=== PATIENT | female | born 1955 | race Caucasian/White ===

== ENCOUNTER 2020-02-14 09:00 | Outpatient (CLI) | payer OTHER, SELFPAY ==
--- NOTE | ~2020-02-14 | US_ITS ---
EXAMINATION: US carotid duplex BI DATE: 02/14/2020 09:27 INDICATION: Bilateral carotid stenosis TECHNIQUE: Grayscale, color Doppler, and pulsed Doppler images of the cervical carotid arteries were obtained. The degree of vessel stenosis is placed in one of the following categories: normal, <50%, 5 0-69%, >=70% but less than near-occlusion, near-occlusion, or total occlusion. Note that percent sten osis relative to normal distal artery lumen diameter is indirectly measured from velocity measurement s as described by Sid, et al. Radiology 2003; 229:340-346. COMPARISON: None. FINDINGS: RIGHT: The right common carotid artery (CCA) peak systolic velocity (PSV) is 87 cm/s. The right internal car otid artery (ICA) PSV is 134 cm/s. The right ICA end-diastolic velocity (EDV) is 41 cm/s. The right I CA/CCA PSV ratio is 1.5. Grayscale and color Doppler images yield an estimate of 50-69% diameter redu ction from plaque in the ICA. The external carotid artery (ECA) PSV is 87 cm/s. There is antegrade fl ow in the right vertebral artery. LEFT: The left CCA PSV is 106 cm/s. The left ICA PSV is 139 cm/s. The left ICA EDV is 46 cm/s. The left ICA /CCA PSV ratio is 1.3. Grayscale and color Doppler images yield an estimate of 50-69% diameter reduct ion from plaque in the ICA. The ECA PSV is 114 cm/s. There is antegrade flow in the left vertebral ar mercedes. IMPRESSION: 1. 50-69% stenosis in the right internal carotid artery. 2. 50-69% stenosis in the left internal carotid artery. Reviewed, dictated and finalized at location B.
== END 2020-02-14 09:01 | disposition home or self-care (01) ==
LOC: CHSIMG 09:01
PROVIDERS: PCP Internal Medicine; Visit Provider Internal Medicine
DX: I65.23 Occlusion and stenosis of bilateral carotid arteries (principal)
CPT/HCPCS: 93880

== ENCOUNTER 2020-06-19 12:19 | Outpatient (CLI) | payer MEDICARE, SELFPAY | END 2020-06-19 12:20 | disposition home or self-care (01) | LOC: CHSIMG 12:21 | PROVIDERS: PCP Internal Medicine; Visit Provider Internal Medicine Cardiovascular Disease | DX: R93.89 Abnormal findings on diagnostic imaging of other specified body structures (principal); I51.9 Heart disease, unspecified | CPT/HCPCS: 93306 ==

== ENCOUNTER 2021-05-24 12:32 | Outpatient (CLI) | payer MEDICARE, SELFPAY ==
--- NOTE | ~2021-05-24 | US_ITS ---
EXAMINATION: US carotid duplex BI DATE: 05/24/2021 13:02 INDICATION: Carotid stenosis TECHNIQUE: Grayscale, color Doppler, and pulsed Doppler images of the cervical carotid arteries were obtained. The degree of vessel stenosis is placed in one of the following categories: normal, <50%, 5 0-69%, >=70% but less than near-occlusion, near-occlusion, or total occlusion. Note that percent sten osis relative to normal distal artery lumen diameter is indirectly measured from velocity measurement s as described by Sid, et al. Radiology 2003; 229:340-346. Notes: Normal: Peak systolic velocity <125 centimeters/sec and no plaque <50%. Peak systolic velocity <125 ( EDV <40; ICA/CCA PSV ratio <2.0; used these factors only a tandem lesions or low cardiac output or co ntralateral disease) 50-69 %: PSV 125-230 (EDV 40-100; ratio 2-4) >= 70% but less than near occlusion: PSV greater than 230 (EDV > 100; ratio> 4.0) Near Occlusion: PSV that is variable; markedly narrowed lumen Occlusion: Absent flow on color/spectral Doppler and no lumen on sanchez scale. COMPARISON: 02/14/2020. FINDINGS: RIGHT: The right common carotid artery (CCA) peak systolic velocity (PSV) is 77 cm/s. The right internal car otid artery (ICA) PSV is 94 cm/s. The right ICA end-diastolic velocity (EDV) is 33 cm/s. The right IC A/CCA PSV ratio is 1.2. The external carotid artery (ECA) PSV is 81 cm/s. There is antegrade flow in the right vertebral artery. LEFT: The left CCA PSV is 82 cm/s. The left ICA PSV is 142 cm/s. The left ICA EDV is 53 cm/s. The left ICA/ CCA PSV ratio is 1.7. The ECA PSV is 81 cm/s. There is antegrade flow in the left vertebral artery. IMPRESSION: 1. Less than 50% stenosis in the right internal carotid artery by sonographic criteria. 2. 50-69% stenosis in the left internal carotid artery by sonographic criteria. Reviewed, dictated and finalized at location B. L FABRICATOR WELDER IMPRESSION: 1. Less than 50% stenosis in the right internal carotid artery by sonographic c riteria. 2. 50-69% stenosis in the left internal carotid artery by sonographic criteria.
== END 2021-05-24 12:33 | disposition home or self-care (01) ==
LOC: CHSIMG 12:34
PROVIDERS: PCP Internal Medicine; Visit Provider Internal Medicine Cardiovascular Disease
DX: I65.23 Occlusion and stenosis of bilateral carotid arteries (principal)
CPT/HCPCS: 93880

== ENCOUNTER 2021-05-26 09:57 | Outpatient (CLI) | payer MEDICARE, SELFPAY ==
--- NOTE | ~2021-05-26 | DEXA_ITS ---
Bone Density Report Name: ROSE MARY PFEIFFER Age: 66 Sex: Female Ethnicity: White Date of : 1955 Indication: postmenopausal; screening for osteoporosis; height loss; hysterectomy; Referring Provider: UNKNOWN, UNKNOWN Study: Bone densitometry was performed. Exam Date: May 26, 2021 Accession number: [id number] Bone Density: Region BMD T-score Z-score Classification AP Spine(L1-L4) 0.794 -2.3 -0.5 Osteopenia Femoral Neck (Left) 0.638 -1.9 -0.3 Osteopenia Total Hip (Left) 0.866 -0.6 0.7 Normal Femoral Neck (Right) 0.749 -0.9 0.7 Normal Total Hip (Right) 0.843 -0.8 0.5 Normal Femoral Neck Mean 0.694 -1.4 0.2 Osteopenia Total Hip Mean 0.855 -0.7 0.6 Normal World Health Organization criteria for BMD impression classify patients as: Normal (T-score at or above -1.0), Osteopenia (T-score between -1.0 and -2.5), or Osteoporosis (T-score at or below -2.5). 10-year Fracture Risk(1): Major Osteoporotic Fracture 9.9% Hip Fracture 1.4% Reported Risk Factors: [place] (), Neck BMD=0.638, BMI=29.9 (1) FRAX(R) Version 3.08. Fracture probability calculated for an untreated patient. Fracture probability may be lower if the patient has received treatment. Clinical Information Provided by Patient: Has used the following medications: Vitamin D, Calcium Has the following medical conditions: Hysterectomy Patient maximum height was 65 Menopause Age: 53 No regular weight bearing exercise Drinks caffeinated beverages Onset of menses at age 16 Number of children 3 Impression: The patient has low bone mass, based on the Total Spine T-score. Discussion: BONE DENSITY IS LOW AT ONE OR MORE SKELETAL SITES. This patient's lowest T-score is low at one or more skeletal sites. It meets the World Health Organization's (WHO) criteria for ?low bone mass? (T-score between -1.0 and -2.5). The patient's 10-year risk of fracture as calculated by FRAX is less than the threshold where pharmacological therapy is recommended by the National Osteoporosis Foundation (NOF). However, all treatment decisions require clinical judgment and consideration of individual patient factors, including patient preferences, comorbidities, previous drug use, risk factors not captured in the FRAX model (e.g., frailty, falls, vitamin D deficiency, increased bone turnover, interval significant decline in bone density) and possible under or overestimation of fracture risk by FRAX. The patient should follow a healthful lifestyle (good nutrition with adequate calcium and vitamin D, and appropriate weight-bearing exercise). Follow-Up: Consider repeating this study in 2 to 3 years to reassess this patient's status, or sooner if there is some new clinical indication. Reported by: Dr. Ralph Simons on 05/26/19
== END 2021-05-26 09:58 | disposition home or self-care (01) ==
PROVIDERS: PCP Internal Medicine
DX: Z78.0 Asymptomatic menopausal state (principal)
CPT/HCPCS: 77080

== ENCOUNTER 2021-11-26 15:09 | Outpatient (CLI) | payer MEDICARE, SELFPAY ==
[2021-11-26 15:45] LABS: Alanine Aminotransferase 35 U/L (14-59); Albumin Level 4.4 g/dL (3.4-5.0); Alkaline Phosphatase 105 U/L (46-116); Anion Gap 8 mmol/L (8-16); Aspartate Amino Transferase 22 U/L (15-37); Bilirubin,Total 0.5 mg/dL (0.00-1.00); Blood Urea Nitrogen 20 mg/dL (7-18); Calcium 9.5 mg/dL (8.5-10.1); Carbon Dioxide 28 mmol/L (21-32); Chloride 105 mmol/L (98-108); Estimated Glomerular Filt Rate 52; Glucose 103 mg/dL (70-99); Osmolality Calculated 294 mOsm/kg (285-295); Potassium 4.6 mmol/L (3.5-5.1); Sodium 141 mmol/L (136-145); Total Protein 7.4 g/dL (6.4-8.2)
[2021-11-26 16:31] LABS: Thyroid Stimulating Hormone 2.67 uIU/mL (0.36-3.74)
[2021-12-02 21:04] LABS: Vitamin D 25 Hydroxy 34 ng/mL (30-100)
== END 2021-11-26 15:10 | disposition home or self-care (01) ==
LOC: CHSLAB 15:12
PROVIDERS: PCP Internal Medicine
DX: M85.80 Other specified disorders of bone density and structure, unspecified site (principal); Z00.00 Encounter for general adult medical examination without abnormal findings; F41.9 Anxiety disorder, unspecified
CPT/HCPCS: 36415; 80053; 82306; 84443

== ENCOUNTER 2022-05-19 12:34 | Outpatient (CLI) | payer MEDICARE, SELFPAY ==
--- NOTE | ~2022-05-19 | US_ITS ---
EXAMINATION: US carotid duplex BI DATE: 05/19/2022 13:21 INDICATION: Bilateral carotid artery stenosis TECHNIQUE: Grayscale, color Doppler, and pulsed Doppler images of the cervical carotid arteries were obtained. The degree of vessel stenosis is placed in one of the following categories: normal, <50%, 5 0-69%, >=70% but less than near-occlusion, near-occlusion, or total occlusion. Note that percent sten osis relative to normal distal artery lumen diameter is indirectly measured from velocity measurement s as described by Sid, et al. Radiology 2003; 229:340-346. COMPARISON: 05/24/2021 FINDINGS: RIGHT: The right common carotid artery (CCA) peak systolic velocity (PSV) is 64 cm/s. The right internal car otid artery (ICA) PSV is 99 cm/s. The right ICA end-diastolic velocity (EDV) is 38 cm/s. The right IC A/CCA PSV ratio is 1.6. Grayscale and color Doppler images yield an estimate of <50% diameter reducti on from plaque in the ICA. The external carotid artery (ECA) PSV is 92 cm/s. There is antegrade flow in the right vertebral artery. LEFT: The left CCA PSV is 93 cm/s. The left ICA PSV is 107 cm/s. The left ICA EDV is 43 cm/s. The left ICA/ CCA PSV ratio is 1.2. Grayscale and color Doppler images yield an estimate of <50% diameter reduction from plaque in the ICA. The ECA PSV is 101 cm/s. There is antegrade flow in the left vertebral arter y. Incidentally noted approximately 1.5 cm solid left thyroid nodule with small amount of coarse rim calcification, at least TI-RADS 4. IMPRESSION: 1. <50% stenosis in the right internal carotid artery. 2. <50% stenosis in the left internal carotid artery. 3. Incidentally noted 1.5 cm at least TI RADS 4 left thyroid nodule which is at the threshold for rec ommendation for ultrasound-guided biopsy. Would recommend dedicated thyroid ultrasound for more compr ehensive assessment of this nodule and to identify any additional larger nodules. Reviewed, dictated and finalized at location A. H SCIENCE TECHNICIAN IMPRESSION: 1. <50% stenosis in the right internal carotid artery. 2. <50% stenosis in the left internal carotid artery. 3. Incidentally noted 1.5 cm at least TI RADS 4 left thyroid nodule which is at the threshold for recommendation for ultrasound-guided biopsy. Would recommend dedicated thyroid ultrasound for more comprehensive assessment of this nodule and to identify any additional larger nodules.
== END 2022-05-19 12:35 | disposition home or self-care (01) ==
LOC: CHSIMG 12:37
PROVIDERS: PCP Internal Medicine; Visit Provider Internal Medicine Cardiovascular Disease
DX: I65.23 Occlusion and stenosis of bilateral carotid arteries (principal); E04.1 Nontoxic single thyroid nodule
CPT/HCPCS: 93880

== ENCOUNTER 2022-05-24 10:43 | Outpatient (CLI) | payer MEDICARE, SELFPAY ==
--- NOTE | ~2022-05-24 | US_ITS ---
EXAMINATION: US thyroid DATE: 05/24/2022 11:38 INDICATION: Thyroid nodule. TECHNIQUE: Multiple ultrasound images of the thyroid were obtained. COMPARISON: None. FINDINGS: The right thyroid lobe measures 4.0 x 1.4 x 0.9 cm. The left thyroid lobe measures 4.2 x 1.5 x 1.7 c m. In the left thyroid lobe, there is a 2.5 cm solid, hypoechoic, wider than tall nodule with smooth margin and peripheral calcifications (TI-RADS TR4). In the right thyroid lobe, there are two 4 mm no dules. IMPRESSION: 1. Multinodular goiter. Ultrasound-guided fine-needle aspiration of the left thyroid nodule is recomm ended. Reviewed, dictated and finalized at location A. RVISOR STAVE FINISHING IMPRESSION: 1. Multinodular goiter. Ultrasound-guided fine-needle aspiration of the left th yroid nodule is recommended.
== END 2022-05-24 10:44 | disposition home or self-care (01) ==
LOC: CHSIMG 10:45
PROVIDERS: PCP Internal Medicine; Visit Provider Internal Medicine
DX: E04.2 Nontoxic multinodular goiter (principal)
CPT/HCPCS: 76536

== ENCOUNTER 2022-07-26 12:07 | Outpatient (CLI) | payer MEDICARE, SELFPAY ==
--- NOTE | ~2022-07-26 | CT_ITS ---
CT of the Abdomen and Pelvis: Indication: Abdominal pain Technique: 2.5 mm axial scans were obtained through the abdomen and pelvis following intravenous adm inistration of 100 cc of Omnipaque 350. Dose reduction technique was used on this scan by utilizing a utomated exposure control and iterative reconstruction technique. The dose-length product (DLP) was 4 48.07 mGy-cm. Findings: Scans through the lung bases are unremarkable. The liver, spleen, pancreas, gallbladder, and adrenal glands are within normal limits. There are prob able bilateral parapelvic renal cysts rather than hydronephrosis. Ureters are nondilated. No evidence of aortic aneurysm. No lymphadenopathy. There is wall thickening of the splenic flexure and proximal descending colon. No abscess or free air . No bowel obstruction. Images through the pelvis were performed. Urinary bladder unremarkable. No adnexal mass evident. No a scites. Impression: Wall thickening of the splenic flexure and proximal descending colon, most consistent with infectious /inflammatory colitis. No abscess or free air. Probable bilateral parapelvic renal cysts rather than hydronephrosis. Reviewed, dictated and finalized at [facility]. Impression: Wall thickening of the splenic flexure and proximal descending colon, most cons istent with infectious/inflammatory colitis. No abscess or free air. Probable bilateral parapelvic renal cysts rather than hydronephrosis.
[2022-07-26 12:22] LABS: Basophils Absolute Auto 0.02 K/mm3 (0.00-0.10); Basophils Percent Auto 0.2 % (0.0-1.0); Eosinophils Absolute Auto 0.06 K/mm3 (0.02-0.50); Eosinophils Percent Auto 0.6 % (1.0-6.0); Hematocrit 40.5 % (35.0-42.0); Hemoglobin 13.2 g/dL (11.7-13.8); Immature Granulocyte Absolute 0.05 K/mm3 (0.00-0.00); Immature Granulocyte Percent A 0.5 % (0.0-0.0); Lymphocytes Absolute Auto 1.56 K/mm3 (1.10-4.50); Mean Corpuscular HGB Conc 32.6 g/dL (32.0-36.0); Mean Corpuscular Hemoglobin 29.1 pg (27.0-31.0); Mean Corpuscular Volume 89.4 fL (78.0-102.0); Mean Platelet Volume 11.6 fl (9.2-11.8); Monocytes Absolute Auto 0.66 K/mm3 (0.10-0.90); Monocytes Percent Auto 6.4 % (2.0-11.0); Neutrophils Percent Auto 77.3 % (50.0-70.0); Platelet Count Result 210 K/mm3 (150-420); Red Blood Count 4.53 M/mm3 (4.20-5.40); Red Cell Distribution Width 12.5 % (11.6-14.4); White Blood Count 10.4 K/mm3 (4.8-10.8)
[2022-07-26 12:24] LABS: Appearance Urine Clear (Clear); Bilirubin Urine Negative (Negative); Blood Urine Negative (Negative); Color Urine Light Yellow (Yellow); Glucose Urine UA Negative (Negative); Ketones Urine Negative (Negative); Leukocyte Esterase Ur Negative (Negative); Nitrate Urine Negative (Negative); Protein Urine Negative (Negative); Specific Grav Ur <= 1.005 (1.010-1.020); Urobilinogen Urine 0.2 mg/dL (0.2-1.0); pH Urine 6.5 (5.0-8.0)
[2022-07-26 12:27] LABS: Add Urine Microscopic? NO
[2022-07-26 12:37] LABS: Alanine Aminotransferase 28 U/L (14-59); Alkaline Phosphatase 85 U/L (46-116); Amylase 28 U/L (25-115); Anion Gap 9 mmol/L (8-16); Aspartate Amino Transferase 17 U/L (15-37); Bilirubin,Total 0.6 mg/dL (0.00-1.00); Blood Urea Nitrogen 16 mg/dL (7-18); Calcium 9.4 mg/dL (8.5-10.1); Carbon Dioxide 30 mmol/L (21-32); Chloride 104 mmol/L (98-108); Estimated Glomerular Filt Rate 45; Glucose 98 mg/dL (70-99); Lipase 22 U/L (16-77); Osmolality Calculated 297 mOsm/kg (285-295); Potassium 4.2 mmol/L (3.5-5.1); Sodium 143 mmol/L (136-145); Total Protein 7.5 g/dL (6.4-8.2)
== END 2022-07-26 12:08 | disposition home or self-care (01) ==
LOC: CHSLAB 12:09
PROVIDERS: PCP Internal Medicine; Visit Provider Nurse Practitioner Family
DX: R10.9 Unspecified abdominal pain (principal)
CPT/HCPCS: 36415; 74177; 80053; 81003; 82150; 83690; 85025; 87086; Q9967

== ENCOUNTER 2023-05-08 10:14 | Outpatient (CLI) | payer MEDICARE, SELFPAY ==
--- NOTE | ~2023-05-08 | US_ITS ---
EXAMINATION: US carotid duplex BI DATE: 05/08/2023 10:50 INDICATION: Bilateral carotid artery stenosis. TECHNIQUE: Grayscale, color Doppler, and pulsed Doppler images of the cervical carotid arteries were obtained. The degree of vessel stenosis is placed in one of the following categories: normal, <50%, 5 0-69%, >=70% but less than near-occlusion, near-occlusion, or total occlusion. Note that percent sten osis relative to normal distal artery lumen diameter is indirectly measured from velocity measurement s as described by Sid, et al. Radiology 2003; 229:340-346. COMPARISON: Ultrasound 05/19/2022 FINDINGS: RIGHT: The right common carotid artery (CCA) peak systolic velocity (PSV) is 81 cm/s. The right internal car otid artery (ICA) PSV is 79 cm/s. The right ICA end-diastolic velocity (EDV) is 23 cm/s. The right IC A/CCA PSV ratio is 1.0. Grayscale and color Doppler images yield an estimate of <50% diameter reducti on from plaque in the ICA. There is antegrade flow in the right vertebral artery. LEFT: The left CCA PSV is 83 cm/s. The left ICA PSV is 102 cm/s. The left ICA EDV is 31 cm/s. The left ICA/ CCA PSV ratio is 1.2. Grayscale and color Doppler images yield an estimate of <50% diameter reduction from plaque in the ICA. There is antegrade flow in the left vertebral artery. IMPRESSION: 1. <50% stenosis in the right internal carotid artery. 2. <50% stenosis in the left internal carotid artery. Reviewed, dictated and finalized at location A. H WAGON OPERATOR
== END 2023-05-08 10:15 | disposition home or self-care (01) ==
LOC: CHSIMG 10:17
PROVIDERS: PCP Internal Medicine; Visit Provider Internal Medicine Cardiovascular Disease
DX: I65.23 Occlusion and stenosis of bilateral carotid arteries (principal)
CPT/HCPCS: 93880

== ENCOUNTER 2023-05-31 15:09 | Outpatient (CLI) | payer MEDICARE, SELFPAY ==
--- NOTE | ~2023-05-31 | XR_ITS ---
XR shoulder LT min 2V DATE: 05/31/2023 15:30 INDICATION: Left shoulder pain for 3 months TECHNIQUE: 4 views COMPARISON: None FINDINGS: Degenerative changes at the apophyseal joints and lower cervical degenerative disc and unco vertebral degenerative change are noted. No fracture or dislocation, periosteal reaction or bone destruction or abnormal soft tissue calcifica tion of the left shoulder. IMPRESSION: Cervical spondylosis No significant abnormality of the left shoulder Reviewed, dictated and finalized at location B. NED GLASS GLAZIER HELPER
== END 2023-05-31 15:10 | disposition home or self-care (01) ==
LOC: CHSIMG 15:11
PROVIDERS: PCP Internal Medicine; Visit Provider Internal Medicine
DX: M25.512 Pain in left shoulder (principal); M43.02 Spondylolysis, cervical region
CPT/HCPCS: 73030

== ENCOUNTER 2023-06-12 15:52 | Outpatient (RCR) | payer MEDICARE, SELFPAY ==
--- NOTE | 2023-06-16 14:05 | PCPTNOTE ---
Patient cancelled session due to weather.
--- NOTE | 2023-06-27 11:59 | OPREHPOC ---
Outpatient Therapy Plan of Care This is a Multidisciplinary Plan of Care that may contain components documented by all disciplines (PT, OT, and ST.) PT Problem 1 PT Problem #1 Knowledge Deficit PT Goal 1 Goal 1. independent and compliant with HEP Target Visit 6 PT Problem 2 PT Problem #2 Pain PT Goal 1 Goal 1. patient to report no more than 2/10 pain at worst in the L shoulder Target Visit 12 PT Problem 3 PT Problem #3 Impaired Range of Motion PT Goal 1 Goal improve active L shoulder rom to below listed ranges 1. flexion - 160 degrees 2. abduction - 165 degrees 3. IR - 70 degrees 4. ER - 85 degrees Target Visit 12 PT Problem 4 PT Problem #4 Impaired Strength PT Goal 1 Goal 1. patient to display 4+/5 or better overall L shoulder strength Target Visit 12 PT Problem 5 PT Problem #5 Impaired Functional Mobil PT Goal 1 Goal 1. quick dash to display less than 10%functional deficits 2. patient to lift 5lbs overhead in flexion and abduction without pain x10 reps 3. patient to lift 10lbs to shoulder level shelf without pain 4. patient to reach to shirt collar and bra line with the L UE with ease Target Visit 12
--- NOTE | 2023-06-27 11:59 | PTOPEVAL1 ---
Assessment and note entered by JT File, PT Evaluation Information Assessment Status Evaluation Diagnosis L shoulder pain Onset 01/29/23 Subjective Information patient reports she injured the L shoulder back in January when lifting a couch trying to put a rubber slider on the couch leg. she reports she feels like she felt it tear. she reports she has had an x-ray, but no MRI. she reports she was told by her MD that there is tear. she reports she has pain in the L shoulder when reaching overhead, out to her side, and reaching behind her. she reports difficulty putting on a bra, dressing, bathing, and other self care and home ADL's since her injury. she reports she has had no injections or meds prescribed for shoulder, but till take OTC NSAIDs. Reported Pain Level Pain Score 3: Self Report Assessment PT Clinical Summary mrs. torres is a 68 yo woman who presents to skilled PT services for evaluation and treatment of pain in the L shoulder following an injury lifting her couch at home. she displays decreased rom, decreased strength, pain, and decreased and painful functional lifting and reaching. she likely has a partial tear of the RTC or RTC tendonitis. she would benefit from continued skilled PT to address her objective/functional deficits and return to her prior level functional activity performance/quality of life. Plan of Care Interventions Electrical Stimulation,Hot Pack/Cold Pack,Manual Therapy,Neuro Re-education,Patient/Caregiver Educati,Therapeutic Activities,Therapeutic Exercise PT Services Indicated Yes Treatment Frequency and 3x weekly for 12 visits Duration These treatments will address the objective and functional deficits as defined above. The patient will be advanced safely and appropriately in order for the patient to progress towards his/her prior level of function. Additional exercises will be introduced and as well as a comprehensive home exercise program upon discharge, if needed, ?to ensure carryover of functional gains achieved in the clinic. This treatment plan has been reviewed and agreement upon by the patient.
--- NOTE | 2023-07-05 17:55 | OPREHPOC ---
Outpatient Therapy Plan of Care This is a Multidisciplinary Plan of Care that may contain components documented by all disciplines (PT, OT, and ST.) PT Problem 1 PT Problem #1 Knowledge Deficit PT Goal 1 Goal 1. independent and compliant with HEP Target Visit 18 Progress Partially Met Comment met to date, continue as exercises progress PT Problem 2 PT Problem #2 Pain PT Goal 1 Goal 1. patient to report no more than 2/10 pain at worst in the L shoulder Target Visit 18 Progress Partially Met Comment continue PT Problem 3 PT Problem #3 Impaired Range of Motion PT Goal 1 Goal improve active L shoulder rom to below listed ranges 1. flexion - 160 degrees -not met 2. abduction - 165 degrees -met 3. IR - 70 degrees -met 4. ER - 85 degrees -not met Target Visit 18 Progress Partially Met Comment continue goals not met PT Problem 4 PT Problem #4 Impaired Strength PT Goal 1 Goal 1. patient to display 4+/5 or better overall L shoulder strength Target Visit 18 Progress Partially Met Comment continue PT Problem 5 PT Problem #5 Impaired Functional Mobil PT Goal 1 Goal 1. quick dash to display less than 10%functional deficits -not met 2. patient to lift 5lbs overhead in flexion and abduction without pain x10 reps -not met 3. patient to lift 10lbs to shoulder level shelf without pain -not met 4. patient to reach to shirt collar and bra line with the L UE with ease -met Target Visit 18 Progress Partially Met Comment continue
--- NOTE | 2023-07-05 17:55 | PTOPPROG ---
Assessment and note entered by Rebecca Richardson, PT Evaluation Information Assessment Status Progress Diagnosis L shoulder pain Onset 01/29/23 Subjective Information Geovanna Hernandez reports that her left shoulder is a little better overall. She notes she can reach behind her back to don/doff a bra much easier and without pain. She notes she can reach overhead easier but still has difficulty lifting items into overhead cabinets and washing the back of her head. She also still gets clicking when she reaches overhead. Assessment PT Clinical Summary Geovanna Hernandez has completed 10 skilled PT visits. She is reporting improved mobility and less pain overall since initiating PT. She does still have difficulty with washing the back of her head and lifting into overhead cabinets. She objectively demonstrates improved left shoulder AROM, improved left shoulder strength, and less positive special tests at the left shoulder. She continues to demonstrate a painful arc with left shoulder abduction AROM, decreased left shoulder strength, and + special tests for impingement. She will continue to benefit from skilled PT to further address ongoing limitations and improve functional abilities. Plan of Care Interventions Electrical Stimulation,Hot Pack/Cold Pack,Patient/ Caregiver Educati,Therapeutic Exercise PT Services Indicated Yes Treatment Frequency and Continue skilled PT 3 times a week for 4 visits Duration then 2 times a week for 4 visits to total 8 more These treatments will address the objective and functional deficits as defined above. The patient will be advanced safely and appropriately in order for the patient to progress towards his/her prior level of function. Additional exercises will be introduced and as well as a comprehensive home exercise program upon discharge, if needed, ?to ensure carryover of functional gains achieved in the clinic. This treatment plan has been reviewed and agreement upon by the patient.
== END 2023-07-31 20:00 | disposition home or self-care (01) ==
LOC: CHSPT 15:52
PROVIDERS: PCP Internal Medicine; Visit Provider Internal Medicine
DX: M25.512 Pain in left shoulder (principal)
CPT/HCPCS: 97014; 97110; 97161; 97530; G0283

== ENCOUNTER 2023-10-11 14:05 | Outpatient (CLI) | payer MEDICARE, SELFPAY ==
--- NOTE | ~2023-10-11 | XR_ITS ---
XR knee RT 3V 10/11/2023 14:28 Indication: Right knee pain Procedure: 3 views right knee Comparison: No prior studies for comparison. Findings: There is mild osteoarthritis of the right knee. No fracture, subluxation or dislocation. No significant joint effusion. No foreign bodies. Impression: 1: Mild osteoarthritis of the right knee. Reviewed, dictated and finalized at location B. Impression: 1: Mild osteoarthritis of the right knee.
== END 2023-10-11 14:06 | disposition home or self-care (01) ==
LOC: CHSLAB 14:07 → CHSIMG 14:09
PROVIDERS: PCP Internal Medicine; Visit Provider Internal Medicine
DX: S89.91XA Unspecified injury of right lower leg, initial encounter (principal); M17.11 Unilateral primary osteoarthritis, right knee
CPT/HCPCS: 73562

== ENCOUNTER 2023-10-14 10:17 | Outpatient (CLI) | payer MEDICARE, SELFPAY ==
--- NOTE | ~2023-10-14 | MR_ITS ---
EXAMINATION: MR knee RT wo con DATE: 10/14/2023 12:11 INDICATION: Right knee pain. Right knee internal arrangement. TECHNIQUE: Magnetic resonance imaging (MRI) of the right knee was performed without intravenous contr ast. COMPARISON: Right knee radiograph 10/11/2023 FINDINGS: Medial compartment: There is a complex tear involving body and posterior horn of medial meniscus. There is partial-thickn ess cartilage loss of tibial condyle, deep at the central and medial articular surface with mild subc hondral edema-like marrow signal intensity. There is partial-thickness cartilage loss of femoral cond yle, deep at the central and medial articular surface with mild subchondral edema-like marrow signal intensity. Osteophytes are noted. Lateral compartment: Lateral meniscus is normal. There is cartilage surface irregularity of femoral condyle and tibial con dyle. Osteophytes are noted. There is edema-like marrow signal intensity involving notch of femoral c ondyle and posterior aspect of tibial condyle, consistent with contusions. Patellofemoral compartment: There is deep partial-thickness cartilage loss of patellar median ridge and medial facet with mild lopez bchondral edema-like marrow signal intensity. There is shallow partial-thickness cartilage loss of pa tellar lateral facet. There is partial-thickness cartilage loss of trochlea, deep at the central and medial trochlea. Osteophytes are noted. Ligaments and tendons: Anterior cruciate ligament demonstrates normal morphology proximally. The distal anterior cruciate li gament is not well visualized. Posterior cruciate ligament is normal. There are changes of prior spra ins of medial collateral ligament and fibular collateral characterized by thickening and increased si gnal intensity proximally. There is mild patellar tendinopathy. Fluid: There is a small knee joint effusion. There is a ruptured moderate-sized Fernando's cyst. There is subcu taneous edema about the knee. IMPRESSION: 1. Moderate chondrosis of medial and patellofemoral compartments and mild chondrosis of lateral claribel rtment. 2. Tear of medial meniscus. 3. Small knee joint effusion. 4. Ruptured moderate-sized Fernando's cyst. Reviewed, dictated and finalized at location E. IMPRESSION: 1. Moderate chondrosis of medial and patellofemoral compartments and mild chond rosis of lateral compartment. 2. Tear of medial meniscus. 3. Small knee joint effusion. 4. Ruptured moderate-sized Fernando's cyst.
== END 2023-10-14 10:18 | disposition home or self-care (01) ==
LOC: CHSIMG 10:18
PROVIDERS: PCP Internal Medicine; Visit Provider Internal Medicine
DX: M25.561 Pain in right knee (principal); M23.91 Unspecified internal derangement of right knee
CPT/HCPCS: 73721

== ENCOUNTER 2024-05-24 10:48 | Outpatient (CLI) | payer MEDICARE, SELFPAY ==
--- NOTE | ~2024-05-24 | XR_ITS ---
EXAMINATION: XR lumbar spine 2-3V DATE: 05/24/2024 11:00 INDICATION: Low back pain. Right-sided sciatica. TECHNIQUE: 3 views of lumbar spine were obtained. COMPARISON: None. FINDINGS: Bone alignment is normal. Vertebral body heights are normal. There is mildly decreased disc height at L1-L2. There is multilevel severe facet joint osteoarthritis. IMPRESSION: 1. Mild lumbar spondylosis. Reviewed, dictated and finalized at location B. COUNSELOR IMPRESSION: 1. Mild lumbar spondylosis.
== END 2024-05-24 10:49 | disposition home or self-care (01) ==
LOC: CHSIMG 10:49
PROVIDERS: PCP Internal Medicine; Visit Provider Internal Medicine
DX: M54.50 Low back pain, unspecified (principal); M43.06 Spondylolysis, lumbar region
CPT/HCPCS: 72100